=== PATIENT | female | born 1995 | race Caucasian/White ===

== ENCOUNTER 2018-05-20 07:48 | Emergency (ER) | payer OTHER, SELFPAY ==
[2018-05-20 08:00] VITALS: BP 136/87; PULSE 103; RESP 20; TEMP 36.2; O2SAT 100; BMI 22.0
--- NOTE | 2018-05-20 08:05 | ED.FEMALEGU ---
HPI - Female Genitourinary General Chief complaint: Urogenital-Female Stated complaint: 5 weeks ,bleeding Time Seen by Provider: 05/20/18 07:51 Source: patient and family Mode of arrival: ambulatory Limitations: no limitations History of Present Illness HPI Narrative: 23-year-old female, nonsmoker at 5 weeks presents with some pelvic cramping and bleeding which started last night and progressed to the passage of some clots over the course of this morning. She has bled through 2 pads in the past 8 hr. She is not dizzy nor weak or lightheaded. She denies any fever or chills. She has no dysuria, frequency or urgency. MD Complaint: vaginal bleeding Onset (ago): hour(s) Female Urogenital Radiation: Non-Radiating Quality: Aching and Cramping Duration: intermittent Relieving factors: none Exacerbating factors: none Vaginal discharge: blood and blood clots Patient : Yes Related Data : 1 Para: 0 Review of Systems Review of Systems All systems reviewed & are unremarkable except as noted in HPI and below Constitutional Denies chills, Denies fever(s), Denies lethargy and Denies weakness Eyes Denies change in vision, Denies eye discharge, Denies irritation and Denies loss of vision ENT Ears, Nose, Mouth, and Throat: Denies change in voice, Denies neck pain and Denies sore throat Cardiovascular Denies chest pain, Denies irregular heart rhythm, Denies lightheadedness, Denies palpitations, Denies dyspnea, Denies dyspnea on exertion and Denies orthopnea Respiratory Denies cough, Denies dyspnea, Denies dyspnea on exertion and Denies wheezing Gastrointestinal Gastrointestinal: Denies abdominal pain, Denies change in bowel habits, Denies diarrhea, Denies nausea and Denies vomiting Genitourinary Reports abnormal vaginal bleeding, Denies hematuria, Reports pelvic pain, Denies flank pain, Denies urinary incontinence and Denies urinary urgency Musculoskeletal Denies neck pain Integumentary/Breasts Denies pruritus, Denies erythema, Denies rash and Denies wounds Neurologic Denies confusion, Denies loss of vision and Denies weakness Psychiatric Denies anxiety, Denies confusion, Denies depression, Denies homicidal ideation and Denies suicidal ideation Endocrine Denies palpitations Hematologic/Lymphatic Denies easy bruising Allergic/Immunologic Denies wheezing [facility] Social History Smoking Status: Never smoker Exam Narrative Exam Narrative: GENERAL: 23-year-old female, tearful, in mild distress HEAD: Atraumatic. Normocephalic. No temporal or scalp tenderness. EYES: Pupils equal round and reactive. Extraocular motions intact. No scleral icterus. No injection or drainage. ENT: Nose without bleeding, purulent drainage or septal hematoma. Throat without erythema, tonsillar hypertrophy or exudate. Uvula midline. Airway patent. NECK: Trachea midline. No JVD or lymphadenopathy. Supple, nontender, no meningeal signs. CARDIOVASCULAR: Regular rate and rhythm without murmurs, gallops, or rubs. RESPIRATORY: Clear to auscultation. Breath sounds equal bilaterally. No wheezes, rales, or rhonchi. GASTROINTESTINAL: Abdomen soft, non-tender, nondistended. No hepato-splenomegaly, or palpable masses. No guarding. EXTREMITIES: No clubbing, cyanosis, or edema. No joint tenderness, effusion, or edema noted. BACK: Nontender without deformity or crepitance. No flank tenderness. NEURO: AOx3. SKIN: No rash or erythema. Initial Vital Signs Initial Vital Signs: Vital Signs Temperature 97.2 F L 05/20/18 08:00 Pulse Rate 103 H 05/20/18 08:00 Respiratory Rate 20 05/20/18 08:00 Blood Pressure 136/87 05/20/18 08:00 Pulse Oximetry 100 05/20/18 08:00 Course Orders Ordered: ED Orders 05/20/18 09:39 Urine Microscopic Stat Vital Signs - 8 hr 05/20/18 08:00 Temperature 97.2 F L Pulse Rate 103 H Respiratory Rate 20 Blood Pressure 136/87 Pulse Oximetry 100 MDM - Female Genitourinary Lab Data Result diagrams: 05/20/18 08:13 Lab Results 05/20/18 05/20/18 05/20/18 Range/Units 08:13 08:13 08:13 WBC 6.8 (4.5-11.0) X10^3/uL RBC 4.75 (4.0-5.2) X10^6/uL Hgb 14.7 (12.0-16.0) g/dL Hct 44.0 (36-46) % MCV 92.8 (80-100) fL MCH 31.1 (26-34) PG MCHC 33.5 (30-36) % RDW 12.7 (11.6-14.8) % Plt Count 255 (150-400) X10^3/uL Neut % (Auto) 70.9 (50-75) % Lymph % (Auto) 22.8 L (25-40) % [place] % (Auto) 5.3 (3-14) % Eos % (Auto) 0.7 L (2-4) % Baso % (Auto) 0.3 (0-2) % Neut # (Auto) 4800 (1213-6221) /uL HCG, Quant 41.35 mIU/mL Urine RBC (0-5/HPF) Urine WBC (0-5/HPF) Ur Squamous Epith Cells Urine Bacteria (None) Urine Mucus (Negative) Ur Culture Indicated? Micro UA Comment Blood Type B Positive 05/20/18 Range/Units 09:21 WBC (4.5-11.0) X10^3/uL RBC (4.0-5.2) X10^6/uL Hgb (12.0-16.0) g/dL Hct (36-46) % MCV (80-100) fL MCH (26-34) PG MCHC (30-36) % RDW (11.6-14.8) % Plt Count (150-400) X10^3/uL Neut % (Auto) (50-75) % Lymph % (Auto) (25-40) % [place] % (Auto) (3-14) % Eos % (Auto) (2-4) % Baso % (Auto) (0-2) % Neut # (Auto) (6221-3161) /uL HCG, Quant mIU/mL Urine RBC 1-5/hpf (0-5/HPF) Urine WBC 0-1/hpf (0-5/HPF) Ur Squamous Epith Cells 0-1 /hpf Urine Bacteria Moderate (10-30) H (None) Urine Mucus 3+ H (Negative) Ur Culture Indicated? Specimen cultured Micro UA Comment Not Reportable Blood Type Point of Care Testing Test Results Negative Urine Dip Bedside Urine Glucose Negative Bedside Urine Bilirubin + 1 Bedside Urine Ketone +/- 5 Urine Specific [place] 1.025 Bedside Urine Occult Blood +++ Bedside Urine pH 6.0 Bedside Urine Protein +/- 15 Bedside Urine Urobilinogen - Negative Bedside Urine Nitrite - Negative Bedside Urine Leukocytes - Negative Esterase Discharge Plan Departure Patient Disposition: Home Clinical Impression: Abnormal vaginal bleeding Discharge Date/Time: 05/20/18 10:02 Interventions: ED Discharge Assessment Last Done: 05/20/18 10:02 Instructions: DI for Vaginal Bleeding During Activity Restrictions/Additional Instructions: *You have been diagnosed with [ vaginal bleeding in 1st trimester. Our urine test was negative and the blood test was very low. ] *What to do: *Follow up with your primary care provider (Emelyn) in 2-3 days, call for an appointment. Let them know you were seen in the Emergency Department and that we ask that you be seen in follow up. She will likely repeat some blood tests *Return to ER if you should have any new, worsening or concerning symptoms, such as [ increased bleeding, pain, fever over 101F or other bothersome symptoms] Referrals: Jazmin Dunaway DO [Primary Care Provider] -
--- NOTE | 2018-05-20 08:16 | DI.US.S_ITS ---
PROCEDURE: US PELVIC COMPLETE INDICATIONS: 5 WEEKS ; BLEEDING, CRAMPING TECHNIQUE: Real-time scanning was performed of the pelvic organs, with image documentation. Additional endovaginal scanning was necessary due to incomplete visualization of the adnexal and endometrial structures by transabdominal scanning. COMPARISON: None. FINDINGS: Transabdominal scanning: Limited scanning through the kidneys shows no hydronephrosis. No pathologic free abdominal or pelvic fluid. Endovaginal scanning: Uterus: Uterus is normal in size at 7.5 x 3.7 x 4.7 cm. The endometrium measures 7.1 mm in combined thickness. No intrauterine gestational sac is seen. Ovaries: Right ovary measures 3.3 x 1.6 x 1.7 cm in size. Left ovary measures 5.2 x 3.4 x 4.3 cm in size. 4 x 2.8 x 4 cm simple cyst is noted in left ovary. No gross solid appearing ovarian lesion. IMPRESSION: 1. No evidence of intrauterine gestation. No endometrial mass or fluid. Finding may represent spontaneous . Followup with beta-hCG level is recommended. 2. Simple cyst in left ovary. No gross ectopic gestational sac. No gross solid or primary lesion. Dictated by: Juvenal Oleary M.D. on 05/20/2018 at 9:45 Approved by: Juvenal Oleary M.D. on 05/20/2018 at 9:48
[2018-05-20 08:33] LABS: Add Manual Diff / Slide Review NO; Basophils Percent Auto 0.3 % (0-2); Eosinophils Percent Auto 0.7 % (2-4); Hemoglobin 14.7 g/dL (12.0-16.0); Lymphocytes Percent Auto 22.8 % (25-40); Mean Corpuscular HGB Conc 33.5 % (30-36); Mean Corpuscular Hemoglobin 31.1 PG (26-34); Mean Corpuscular Volume 92.8 fL (80-100); Monocytes Percent Auto 5.3 % (3-14); Neutrophils Absolute Auto 4800 /uL (3000-5900); Neutrophils Percent Auto 70.9 % (50-75); Platelet Count 255 X10^3/uL (150-400); Red Blood Cell Count 4.75 X10^6/uL (4.0-5.2); Red Cell Distribution Width 12.7 % (11.6-14.8); White Blood Cell Count 6.8 X10^3/uL (4.5-11.0)
--- NOTE | 2018-05-20 08:59 | ED_ITS ---
HPI - Female Genitourinary General Chief complaint: Urogenital-Female Stated complaint: 5 weeks ,bleeding Time Seen by Provider: 05/20/18 07:51 Source: patient and family Mode of arrival: ambulatory Limitations: no limitations History of Present Illness HPI Narrative: 23-year-old female, nonsmoker at 5 weeks presents with some pelvic cramping and bleeding which started last night and progressed to the passage of some clots over the course of this morning. She has bled through 2 pads in the past 8 hr. She is not dizzy nor weak or lightheaded. She denies any fever or chills. She has no dysuria, frequency or urgency. MD Complaint: vaginal bleeding Onset (ago): hour(s) Female Urogenital Radiation: Non-Radiating Quality: Aching and Cramping Duration: intermittent Relieving factors: none Exacerbating factors: none Vaginal discharge: blood and blood clots Patient : Yes Related Data : 1 Para: 0 Review of Systems Review of Systems All systems reviewed & are unremarkable except as noted in HPI and below Constitutional Denies chills, Denies fever(s), Denies lethargy and Denies weakness Eyes Denies change in vision, Denies eye discharge, Denies irritation and Denies loss of vision ENT Ears, Nose, Mouth, and Throat: Denies change in voice, Denies neck pain and Denies sore throat Cardiovascular Denies chest pain, Denies irregular heart rhythm, Denies lightheadedness, Denies palpitations, Denies dyspnea, Denies dyspnea on exertion and Denies orthopnea Respiratory Denies cough, Denies dyspnea, Denies dyspnea on exertion and Denies wheezing Gastrointestinal Gastrointestinal: Denies abdominal pain, Denies change in bowel habits, Denies diarrhea, Denies nausea and Denies vomiting Genitourinary Reports abnormal vaginal bleeding, Denies hematuria, Reports pelvic pain, Denies flank pain, Denies urinary incontinence and Denies urinary urgency Musculoskeletal Denies neck pain Integumentary/Breasts Denies pruritus, Denies erythema, Denies rash and Denies wounds Neurologic Denies confusion, Denies loss of vision and Denies weakness Psychiatric Denies anxiety, Denies confusion, Denies depression, Denies homicidal ideation and Denies suicidal ideation Endocrine Denies palpitations Hematologic/Lymphatic Denies easy bruising Allergic/Immunologic Denies wheezing [facility] Social History Smoking Status: Never smoker Exam Narrative Exam Narrative: GENERAL: 23-year-old female, tearful, in mild distress HEAD: Atraumatic. Normocephalic. No temporal or scalp tenderness. EYES: Pupils equal round and reactive. Extraocular motions intact. No scleral icterus. No injection or drainage. ENT: Nose without bleeding, purulent drainage or septal hematoma. Throat without erythema, tonsillar hypertrophy or exudate. Uvula midline. Airway patent. NECK: Trachea midline. No JVD or lymphadenopathy. Supple, nontender, no meningeal signs. CARDIOVASCULAR: Regular rate and rhythm without murmurs, gallops, or rubs. RESPIRATORY: Clear to auscultation. Breath sounds equal bilaterally. No wheezes , rales, or rhonchi. GASTROINTESTINAL: Abdomen soft, non-tender, nondistended. No hepato-splenomegaly , or palpable masses. No guarding. EXTREMITIES: No clubbing, cyanosis, or edema. No joint tenderness, effusion, or edema noted. BACK: Nontender without deformity or crepitance. No flank tenderness. NEURO: AOx3. SKIN: No rash or erythema. Initial Vital Signs Initial Vital Signs: Vital Signs Temperature 97.2 F L 05/20/18 08:00 Pulse Rate 103 H 05/20/18 08:00 Respiratory Rate 20 05/20/18 08:00 Blood Pressure 136/87 05/20/18 08:00 Pulse Oximetry 100 05/20/18 08:00 Course Orders Ordered: ED Orders 05/20/18 09:39 Urine Microscopic Stat Vital Signs - 8 hr 05/20/18 08:00 Temperature 97.2 F L Pulse Rate 103 H Respiratory Rate 20 Blood Pressure 136/87 Pulse Oximetry 100 MDM - Female Genitourinary Lab Data Result diagrams: 05/20/18 08:13 Lab Results 05/20/18 05/20/18 05/20/18 Range/Units 08:13 08:13 08:13 WBC 6.8 (4.5-11.0) X10^3/uL RBC 4.75 (4.0-5.2) X10^6/uL Hgb 14.7 (12.0-16.0) g/dL Hct 44.0 (36-46) % MCV 92.8 (80-100) fL MCH 31.1 (26-34) PG MCHC 33.5 (30-36) % RDW 12.7 (11.6-14.8) % Plt Count 255 (150-400) X10^3/uL Neut % (Auto) 70.9 (50-75) % Lymph % (Auto) 22.8 L (25-40) % [place] % (Auto) 5.3 (3-14) % Eos % (Auto) 0.7 L (2-4) % Baso % (Auto) 0.3 (0-2) % Neut # (Auto) 4800 (1446-9021) /uL HCG, Quant 41.35 mIU/mL Urine RBC (0-5/HPF) Urine WBC (0-5/HPF) Ur Squamous Epith Cells Urine Bacteria (None) Urine Mucus (Negative) Ur Culture Indicated? Micro UA Comment Blood Type B Positive 05/20/18 Range/Units 09:21 WBC (4.5-11.0) X10^3/uL RBC (4.0-5.2) X10^6/uL Hgb (12.0-16.0) g/dL Hct (36-46) % MCV (80-100) fL MCH (26-34) PG MCHC (30-36) % RDW (11.6-14.8) % Plt Count (150-400) X10^3/uL Neut % (Auto) (50-75) % Lymph % (Auto) (25-40) % [place] % (Auto) (3-14) % Eos % (Auto) (2-4) % Baso % (Auto) (0-2) % Neut # (Auto) (9912-6509) /uL HCG, Quant mIU/mL Urine RBC 1-5/hpf (0-5/HPF) Urine WBC 0-1/hpf (0-5/HPF) Ur Squamous Epith Cells 0-1 /hpf Urine Bacteria Moderate (10-30) H (None) Urine Mucus 3+ H (Negative) Ur Culture Indicated? Specimen cultured Micro UA Comment Not Reportable Blood Type Point of Care Testing Test Results Negative Urine Dip Bedside Urine Glucose Negative Bedside Urine Bilirubin + 1 Bedside Urine Ketone +/- 5 Urine Specific [place] 1.025 Bedside Urine Occult Blood +++ Bedside Urine pH 6.0 Bedside Urine Protein +/- 15 Bedside Urine Urobilinogen - Negative Bedside Urine Nitrite - Negative Bedside Urine Leukocytes - Negative Esterase Discharge Plan Departure Patient Disposition: Home Clinical Impression: Abnormal vaginal bleeding Discharge Date/Time: 05/20/18 10:02 Interventions: ED Discharge Assessment Last Done: 05/20/18 10:02 Instructions: DI for Vaginal Bleeding During Activity Restrictions/Additional Instructions: *You have been diagnosed with [ vaginal bleeding in 1st trimester. Our urine test was negative and the blood test was very low. ] *What to do: *Follow up with your primary care provider (Emelyn) in 2-3 days, call for an appointment. Let them know you were seen in the Emergency Department and that we ask that you be seen in follow up. She will likely repeat some blood tests *Return to ER if you should have any new, worsening or concerning symptoms , such as [ increased bleeding, pain, fever over 101F or other bothersome symptoms] Referrals: Jazmin Dunaway DO [Primary Care Provider] -
[2018-05-20 09:01] LABS: HCG Quantitative /Beta subunit 41.35 mIU/mL
[2018-05-20 09:42] LABS: Bacteria Urine Moderate (10-30); Culture Indicated Urine Specimen Cultured; Mucus Urine 3+ (Negative); RBC Urine 1-5/HPF (0-5/HPF); Squamous Epithelial Cell Urine 0-1 /HPF; WBC Urine 0-1/HPF (0-5/HPF)
[2018-05-20 10:00] VITALS: BP 108/71; PULSE 85; RESP 18; O2SAT 99
== END 2018-05-20 10:02 | disposition home or self-care (01) ==
PROVIDERS: Emergency Provider Emergency Medicine; PCP Family Medicine
DX: O20.9 Hemorrhage in early pregnancy, unspecified (principal); Z3A.01 Less than 8 weeks gestation of pregnancy
CPT/HCPCS: 36415; 76830; 76856; 81003; 81015; 81025; 84702; 85025; 86900; 86901; 87086; 99283; 99284

== ENCOUNTER → 2018-06-01 10:44 | Outpatient (CLI) | payer OTHER, SELFPAY ==
[2018-06-01 12:07] LABS: Add Manual Diff / Slide Review NO; Basophils Percent Auto 0.4 % (0-2); Eosinophils Percent Auto 0.7 % (2-4); Hematocrit 42.3 % (36-46); Hemoglobin 14.3 g/dL (12.0-16.0); Lymphocytes Percent Auto 26.2 % (25-40); Mean Corpuscular HGB Conc 33.9 % (30-36); Mean Corpuscular Hemoglobin 31.1 PG (26-34); Mean Corpuscular Volume 91.8 fL (80-100); Monocytes Percent Auto 5.1 % (3-14); Neutrophils Absolute Auto 5000 /uL (1500-7000); Neutrophils Percent Auto 67.6 % (50-75); Platelet Count 255 X10^3/uL (150-400); Red Blood Cell Count 4.61 X10^6/uL (4.0-5.2); Red Cell Distribution Width 12.5 % (11.6-14.8); White Blood Cell Count 7.3 X10^3/uL (4.5-11.0)
[2018-06-01 12:43] LABS: Appearance Urine UA CLEAR; Bilirubin Urine UA NEGATIVE (NEGATIVE); Color Urine UA YELLOW; Glucose Urine UA NEGATIVE (Normal); Ketones Urine UA NEGATIVE (NEGATIVE); Leukocyte Esterase Urine UA NEGATIVE (NEGATIVE); Nitrite Urine UA NEGATIVE (Negative); Occult Blood Urine UA NEGATIVE (Negative); Protein Urine UA NEGATIVE (Negative); Urobilinogen Urine UA 0.2 E.U./dL (0.2)
[2018-06-01 17:09] LABS: Hepatitis B Surface Antigen NEGATIVE s/c (NEGATIVE); Rubella Antibody IgG 46.2 IU/mL (>15)
[2018-06-01 17:18] LABS: HIV 1 and 2 Antibody NEGATIVE (NEGATIVE); Hep C Virus Ab w/Reflex Quant NEGATIVE s/c (NEGATIVE)
[2018-06-02 12:39] LABS: HSV 2 IGG AB < 0.90 index (< 0.90); HSV1IGG < 0.90 index (< 0.90)
[2018-06-02 18:40] LABS: RPR Screen Nonreactive (Nonreactive)
[2018-06-03 13:45] LABS: HCG Quantitative /Beta subunit < 2.39 mIU/mL
== END ==
PROVIDERS: PCP Family Medicine; Visit Provider Family Medicine
DX: Z34.91 Encounter for supervision of normal pregnancy, unspecified, first trimester (principal); O03.9 Complete or unspecified spontaneous abortion without complication
CPT/HCPCS: 36415; 80055; 81003; 84702; 86695; 86696; 86703; 86787; 86803; 86850; 86900; 86901; 87086

== ENCOUNTER → 2018-09-01 07:32 | Outpatient (CLI) | payer OTHER, SELFPAY ==
--- NOTE | 2018-09-01 07:34 | DI.US.S_ITS ---
PROCEDURE: US OB <= 14 WEEKS FETUS INDICATIONS: Initial/Dating US OUTSIDE/PRIOR DATING DATA: Last menstrual period (LMP): 07/14/18. LMP-based estimated date of delivery (ABHINAV): 04/20/19. First dating scan (date and location): This study, 09/01/18. Estimated date of delivery (ABHINAV) from first dating scan: 04/17/19, plus or -5 days. TECHNIQUE: Real-time scanning was performed of the fetus and maternal pelvic organs, with image documentation. Endovaginal scanning was also performed to better visualize the fetus and maternal ovaries. COMPARISON: None. FINDINGS: Embryo: [place]-rump length 1.3 cm with estimated gestational age 7 weeks 3 days and heart rate 150 beats per minute. Measurement variability in dating: +/- 4 weeks by LMP, +/- 7 days by mean sac diameter (use before 6 weeks gestation if crown-rump length not able to be measured), +/- 5 days by crown-rump length (up to 8 weeks 6 days gestation), +/- 7 days by crown-rump length (up to 13 weeks 6 days gestation). Maternal organs: Ovaries normal considering gestational status. Limited images through the kidneys demonstrate no hydronephrosis. IMPRESSION: Single living intrauterine gestation with current estimated gestational age of 7 weeks 3 days, plus or -5 days. Followup anatomic survey at approximately 21 weeks gestation is recommended. Dictated by: Dean Sheth M.D. on 09/01/2018 at 10:05 Approved by: Dean Sheth M.D. on 09/01/2018 at 10:07
== END ==
PROVIDERS: PCP Family Medicine; Visit Provider Family Medicine
DX: Z34.91 Encounter for supervision of normal pregnancy, unspecified, first trimester (principal); Z3A.01 Less than 8 weeks gestation of pregnancy
CPT/HCPCS: 76801; 76817

== ENCOUNTER → 2018-11-30 09:31 | Outpatient (CLI) | payer OTHER, SELFPAY ==
--- NOTE | 2018-11-30 09:32 | DI.US.S_ITS ---
PROCEDURE: US OB >= 14 WEEKS FETUS INDICATIONS: ANATOMY OUTSIDE/PRIOR DATING DATA: Last menstrual period (LMP): 07/14/18. LMP-based estimated date of delivery (ABHINAV): 04/20/19. First dating scan (date and location): This study, 09/01/18. Estimated date of delivery (ABHINAV) from first dating scan: 04/17/19, plus or -5 days. TECHNIQUE: Real-time scanning was performed of the fetus, with image documentation and biometric measurements. Endovaginal scanning: No COMPARISON: [facility], , OB <= 14 WEEKS FETUS, 09/01/2018, 7:58. FINDINGS: General: A single living intrauterine gestation is present. Presentation: Transverse. Placenta: Placental position is fundal, without previa. Amniotic fluid index: 12.6 cm, normal range is 5-24 cm. heart rate: 145 beats per minute. Maternal cervical canal: 3.6 cm long. Normal lower limit is 2.5 cm. biometrics: Biparietal diameter: 21 weeks 4 days Head circumference: 21 weeks 2 days Abdominal circumference: 21 weeks 6 days Femur length: 20 weeks 5 days Estimated gestational age from initial scan: 20 weeks 2 days Composite gestational age from present scan: 21 weeks 3 days Estimated weight and percentile: 417 g; 94th percentile Measurement variability for biometric dating: +/- 7 days from 14 weeks to 15 weeks 6 days gestation, +/- 10 days from 16 weeks to 21 weeks 6 days gestation, +/- 2 weeks from 22 weeks to 27 weeks 6 days gestation, +/- 3 weeks for 28 weeks gestation or later. weight reference: 4500 g or EFW >90/95% is considered macrosomia or large for gestational age. EFW <10% is small for gestational age. EFW 5% or less is considered intra-uterine growth restriction. Anatomic survey: Neuro: Ventricles are non-dilated at less than 10 mm. Cisterna magna is normal at 3-11 mm. Cerebellum is normal in size and morphology. Nuchal skin fold: Normal at less than 6 mm between 14-21 weeks gestational age. Face: Nose and lips, facial profile are normal. Spine: No evidence for spina bifida. Heart: 4-chambered heart is present, with normal ventricular outflow tracts. Diaphragm: Diaphragm is intact. Stomach: Left-sided stomach is present. Kidneys: No hydronephrosis. Normal is less than 5 mm in 2nd trimester, less than 7 mm in 3rd trimester. Cord: 3-vessel cord has orthotopic insertion. Bladder: Normal in size. Extremities: All 4 extremities identified. IMPRESSION: Normal interval growth and normal anatomic survey. Dictated by: Willie REID Interpreted: Pushpa Fernando MD on 11/30/2018 at 10:47 Approved by: Pushpa Fernando M.D. on 11/30/2018 at 14:10
== END ==
PROVIDERS: PCP Family Medicine; Visit Provider Family Medicine
DX: Z36.89 Encounter for other specified antenatal screening (principal); Z3A.21 21 weeks gestation of pregnancy
CPT/HCPCS: 76811

== ENCOUNTER → 2019-01-20 08:30 | Outpatient (CLI) | payer OTHER, SELFPAY ==
[2019-01-20 11:29] LABS: Hematocrit 31.1 % (36-46); Hemoglobin 11.1 g/dL (12.0-16.0)
[2019-01-20 11:52] LABS: GTT (PREG) 1 Hour PP 50gm Dose 106 mg/dL (76-139)
== END ==
PROVIDERS: PCP Family Medicine; Visit Provider Family Medicine
DX: Z34.82 Encounter for supervision of other normal pregnancy, second trimester (principal); Z3A.26 26 weeks gestation of pregnancy
CPT/HCPCS: 36415; 82950; 85014; 85018

== ENCOUNTER → 2019-03-23 11:00 | Outpatient (CLI) | payer OTHER, SELFPAY ==
[2019-03-24 09:39] LABS: Strep Grp B PCR NEG for Grp B Strep
== END ==
PROVIDERS: PCP Family Medicine; Referring Provider Family Medicine; Visit Provider Family Medicine
DX: Z34.90 Encounter for supervision of normal pregnancy, unspecified, unspecified trimester (principal); Z3A.36 36 weeks gestation of pregnancy
CPT/HCPCS: 87653

== ENCOUNTER 2019-04-05 03:10 | Observation (INO) | payer OTHER, SELFPAY ==
--- NOTE | 2019-04-05 07:30 | PM.OBTRLD ---
Visit Information Visit Information Date of evaluation: 04/05/19 Primary OB Provider: Jazmin Dunaway On-call OB Provider: Grace Herrmann Reason for Evaluation: Yes rupture of membranes Vital Signs Vital Signs: Blood pressure 118/64, pulse 111, temperature 98.4? 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 Smoking Status: Never smoker alcohol intake: current (rare) substance use type: does not use Evaluation Evaluation Baseline heart rate: 140 Variability: Moderate (11-25) monitor accelerations: Present monitor decelerations: Absent Contraction Frequency (minutes): 8 Uterine Contraction Intensity: Mild Category of Tracing: I Cervical dilation (cm): 1 Cervical effacement (%): 60 station: -2 Non-invasive Membranes Rupture Test: positive Diagnosis, Plan/Disposition Final Diagnosis (1) PROM (premature rupture of membranes): Current Visit: No Status: Acute (2) 37 weeks gestation of : Current Visit: No Status: Acute Plan/Disposition Plan: Patient not in active labor with PROM. Advised patient to stay for induction of labor but patient declined. She wishes to go home for few more hours to see if she goes into active labor. OB Disposition: home
== END 2019-04-05 04:35 | disposition home or self-care (01) ==
LOC: LABOR 03:14
PROVIDERS: Admitting Provider Specialist; PCP Family Medicine; Visit Provider Specialist
DX: O42.90 Premature rupture of membranes, unspecified as to length of time between rupture and onset of labor, unspecified weeks of gestation (principal); Z3A.37 37 weeks gestation of pregnancy
CPT/HCPCS: 59025; 84112; G0378; G0379

== ENCOUNTER 2019-04-05 09:14 | Inpatient (IN) | payer OTHER, SELFPAY ==
[2019-04-05 11:01] VITALS: BP 118/73
--- NOTE | 2019-04-05 11:45 | PM.OBHP.1 ---
OB HPI Date/Time Date of admission: 04/05/19 Date Patient Seen: 04/05/19 Time Patient Seen: 12:30 History of Present Condition Chief complaint: : 2 Para: 0 Estimated Date of Delivery: 04/20/19 Estimated Gestational Age (weeks): 37w6d Narrative: Adelina Payne is a 23 year old at 37 weeks and 6 days gestation which spontaneous rupture of membranes last night at 9:15 p.m.. Patient came into triage at approximately 3 this morning to confirm rupture of membranes. Admission was recommended however she declined. She returned this morning and again declined intervention in favor of a walk. Patient has now walked and is feeling contractions more in addition to ongoing leaking of clear fluid. She reports good movement. has been uncomplicated. Her is currently deployed but on his way back now. History of Present care: good care, initiated at week # (8), number of visits (11) and pounds weight gain (25) Dating criteria: LMP confirmed by 1st trimester US Ultrasounds: normal 1st trimester US and normal mid trimester US Obstetrical complications: none Medical complications: none Narrative: Positive family history of Ayazi syndrome and Jimbo syndrome on side of the family. Patient was referred to maternal medicine, first and second trimester screening normal. Preadmission Labs Blood type: B (+) positive -: Antibody screen: negative, Cystic fibrosis screen: negative, GBS status: negative, HBsAG: negative, HIV: negative, HSV 1: negative, HSV 2: negative and RPR/VDLR: negative -: Rubella: immune and Varicella: immune HCT: 42.3 HCAB: negative Integrated screen: Negative Quad screen: Normal Urine: Negative 1 hr GTT: 102 Prior (ies) History: 06/01/18 SAB 6 weeks Evaluation Evaluation Baseline heart rate: 140 Variability: Average (6-10) monitor accelerations: Present monitor decelerations: Absent Contraction Frequency (minutes): 6 Uterine Contraction Intensity: Moderate Category of Tracing: I Cervical dilation (cm): 2 Cervical effacement (%): 75 station: -1 Non-invasive Membranes Rupture Test: positive [facility] Medical History Anxiety (Chronic ~2011) Eczema (Chronic ~2015) Surgical History Hx of LASIK (Resolved) [place] teeth extracted (Resolved) Family History Mother Hypertension Mental health problem Father Hypertension Heart disease Sister Mental health problem Grandmother Dementia Grandmother Cancer Social History marital status: education level: college (BS in biology) 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 Smoking Status: Never smoker alcohol intake: current (rare) substance use type: does not use Meds Home Medications and Allergies Home Medications Medication Instructions Recorded Confirmed Type prenat.vits,kelsea,afm-sdsj-naenv 1 tab PO DAILY 09/11/18 09/11/18 History Allergies Allergy/AdvReac Type Severity Reaction Status Date / Time amoxicillin [From Augmentin] Allergy Mild rash Verified 05/23/18 12:03 clavulanic acid Allergy Mild rash Verified 05/23/18 12:03 [From Augmentin] latex Allergy Mild rash Verified 05/23/18 12:04 Sulfa (Sulfonamide Allergy Mild rash Verified 05/23/18 12:04 Antibiotics) Review of Systems Constitutional Constitutional: Denies fever(s) and Denies headache(s) ENT Ears, Nose, Mouth, and Throat: No headache(s) Cardiovascular Cardiovascular: Denies chest pain and Denies shortness of breath Respiratory Respiratory: Denies cough and Denies dyspnea Gastrointestinal Gastrointestinal: Denies change in bowel habits, Denies nausea and Denies vomiting Neurologic Neurologic: Denies headache(s) Exam Vital Signs (past 8 hours): - 04/05/19 11:01 Blood Pressure 118/73 temperature 36.7? blood pressure 113/67 pulse 102 Const General: healthy appearing and comfortable [facility] Head: normal to inspection Ears: hearing grossly normal bilaterally Nose: external nose normal Face and sinus: normal facial exam Mouth: oral mucosae normal Eyes General: appearance normal, both eyes and all related structures Neck Neck: normal visual inspection Resp Effort & Inspection: normal respiratory effort Auscultation: clear to auscultation bilaterally Cardio Rate: regular rate Rhythm: regular rhythm Heart Sounds: no murmurs GI Other: Gravid External Female Exam: external appearance normal Manual OB Exam: dilated 2, effaced 75% and station -1 Presentation: vertex Estimated Weight (lbs): 7 Amniotic Fluid: clear Back/Spine/Pelvis Back: normal to inspection Skin General: no rashes or lesions noted Extrem General: normal to inspection and no pedal edema Assessment and Plan Assessment and Plan Assessment and Plan narrative: 23-year-old at 37 weeks and 6 days gestation with pre labor rupture of membranes at 9:15 p.m. last night with clear fluid. She has continued to leak clear fluid. GBS negative. Patient afebrile and heart tones category 1. Discussed options with patient of expected management verses augmentation of labor. Explained that the risks of infection go up after rupture of membranes, particularly after 24 hours of rupture. She is now 15 hours since rupture and agrees with augmentation of labor. Plan - Pitocin per protocol - Patient desires natural childbirth and has a [employer] as well as sister and friend for support
[2019-04-05] MEDS: LACTATED RINGERS 1,000 ML 100 ML IV (12:48)
[2019-04-05 13:15] LABS: Add Manual Diff / Slide Review NO; Basophils Absolute Auto 0 /uL (0-100); Basophils Percent Auto 0.3 % (0-2); Eosinophils Absolute Auto 100 /uL (0-450); Eosinophils Percent Auto 0.4 % (2-4); Hematocrit 32.1 % (36-46); Lymphocytes Absolute Auto 1800 /uL (1100-4500); Lymphocytes Percent Auto 11.2 % (25-40); Mean Corpuscular HGB Conc 34.3 % (30-36); Mean Corpuscular Hemoglobin 30.4 PG (26-34); Mean Corpuscular Volume 88.8 fL (80-100); Monocytes Absolute Auto 800 /uL (0-900); Monocytes Percent Auto 5.2 % (3-14); Neutrophils Absolute Auto 13600 /uL (1500-7000); Neutrophils Percent Auto 82.9 % (50-75); Platelet Count 330 X10^3/uL (150-400); Red Blood Cell Count 3.61 X10^6/uL (4.0-5.2); Red Cell Distribution Width 13.4 % (11.6-14.8); White Blood Cell Count 16.4 X10^3/uL (4.5-11.0)
[2019-04-05] MEDS: OXYTOCIN PREMIX 30 UNIT/500 ML PLAST..BAG IV (13:25)
--- NOTE | 2019-04-05 17:31 | PM.OBPNLAB ---
Date/Time Date Patient Seen: 04/05/19 Time Patient Seen: 16:45 Pain Control Pain control: tolerating well Comments: Coping with contractions with support of friend and surgical resident, rates 6/10. Pelvic Exam Dilation (cm): 3 Effacement (%): 80 station: -1 Amniotic membrane status: Ruptured Contractions Monitor mode: External Pitocin rate (mU/min): 5 Contraction frequency (min): 4 Contraction pattern: Regular Contraction intensity: Moderate Status status: Category l Heart Rate Baseline: 130 Monitor Accelerations: Present Monitor Decelerations: Absent Monitor Variability: Moderate Assessment and Plan Plan: continuous present management Comments: Modest cervical change on pitocin, likely entering active labor.
[2019-04-06] MEDS: LIDOCAINE 1% 20 ML (02:15)
[2019-04-06] MEDS: miSOPROStol 200 MCG TABLET 800 MCG PR (02:30)
--- NOTE | 2019-04-06 02:34 | P.PCNOB_ITS ---
Events: Labor Augmentation, Premature Rupture of Membrane and Prolonged Rupture of Membrane Labor & Delivery Delivery date: 04/06/19 Delivery augmentation: pitocin Delivery monitor: external FHT Route of delivery: L&D Laceration Description: Perineal - 1st Degree Delivery repair: vicryl Estimated blood loss (mL): 500 Anesthesia type: Epidural Narrative: Patient is a 23-year-old at 38 weeks who gave on 04/06/19 at 2:02 AM. ABHINAV: 04/20/19 Hospital problems: 38 weeks of Epidural analgesia STAGE I: Labor Spontaneous rupture of membranes occurred at home on 04/04/19 at approximately 9:15 p.m. with clear fluid. Patient was admitted to the center and received Pitocin per protocol starting on 04/05/19 at 12:30 p.m.. She requests well on minimal Pitocin and received an epidural with adequate pain control. She was complete at 11:20 p.m.. heart tones were category 1 and 2 throughout stage I. STAGE II: Delivery Spontaneous vaginal delivery occurred at 2:02 a.m. on 04/06/19. Presentation was vertex and JASPREET. There was a nuchal cord x1 which was reduced. Infant was immediately placed on mother's abdomen. Cord was clamped and cut after 1 minute delay. Apgars were 8 and 9 at 1 and 5 minutes. The second stage of labor lasted 2 hours and 42 minutes. No resuscitation of the required beyond drying and stimulating on mother. STAGE III: Placenta/Cord Placenta delivered spontaneously at 2:07 a.m. with a three-vessel cord and appeared intact. The third stage of labor lasted 5 minutes. A first degree perineal laceration was repaired in the usual fashion with 4 0 Vicryl. Complications: Continued trickling despite pitocin. Misoprostol given per rectum with resolution of bleeding. Uterus firm. Hemostasis assured. EBL: 500 mL. Needle and sponge counts were correct. The vagina was inspected and no items were left in situ. Patient was doing well with Bill, her and at bedside. Baby 1: gender: Male Presentation: vertex position: Right Occiput Anterior Placenta delivery description: Spontaneous cord vessel description: 3 Vessels score (1 min): 8 score (5 min): 9
[2019-04-06] MEDS: DERMOPLAST SPRAY 20% 60 ML 1 SPRAY TOP (06:18)
[2019-04-06] MEDS: IBUPROFEN 600 MG TABLET PO ×3 (08:20→20:23)
[2019-04-06] MEDS: DOCUSATE 250 MG CAPSULE PO (08:20)
[2019-04-06] MEDS: PRENATAL VIT,CALC/IRON/FOLIC 1 TABLET 1 TAB PO (08:21)
[2019-04-07 03:49] VITALS: BP 118/73; PULSE 77; RESP 18; TEMP 36.6
[2019-04-07] MEDS: IBUPROFEN 600 MG TABLET PO (06:30)
[2019-04-07 06:32] LABS: Hematocrit 31.6 % (36-46); Hemoglobin 10.8 g/dL (12.0-16.0)
--- NOTE | 2019-04-07 09:22 | P.DS_ITS ---
Discharge Providers Provider Date of admission: 04/05/19 09:14 Discharge Date: 04/07/19 Primary care physician: Jazmin Dunaway DO Consults: 04/06/19 03:49 Consult to Community Product Specialist Routine Comment: Discharge provider: Jazmin Dunaway DO Summary Hospital Course Date Patient Seen: 04/07/19 Time Patient Seen: 08:50 Procedures: Spontaneous vaginal delivery Epidural analgesia Hospital Course: Patient is a 23-year-old G2 now P1 after uncomplicated spontaneous vaginal delivery. She was admitted with pre labor rupture of membranes and given Pitocin per protocol for labor augmentation. She received an epidural with adequate pain control and progressed to deliver a vigorous male . Immediately after delivery patient had persistent bleeding with fundal massage so was given misoprostol in addition to Pitocin with resolution of bleeding. Her first degree perineal laceration was repaired in the usual fashion. Bleeding was light and pain well controlled. Breast-feeding going well without issues in the . She was ambulating, eating, voiding without issue. Peripartum Data Delivery Method: Natural Vaginal Laceration description: Perineal - 1st Degree complications: none 1: Gender: Male Disposition of : home Discharge Diagnosis (1) PROM (premature rupture of membranes): Status: Acute (2) 38 weeks gestation of : Status: Acute (3) Spontaneous vaginal delivery: Status: Acute Status at Discharge Cognitive/behavioral status at discharge: at baseline, oriented Overall status at discharge: patient is progressing back to baseline Time Spent with Patient Time attestation: Total time spent providing and/or coordinating discharge services: Time spent: Less than 30 minutes Objective Labs Result Diagrams: 04/07/19 06:20 Labs: Laboratory Results - last 24 hr 04/07/19 06:20 Hgb 10.8 L Hct 31.6 L Exam Vital Signs (past 8 hours): Temperature 99.0? blood pressure 110/69 heart rate 81 respirations 16 Narrative Exam Narrative: General: Awake and alert, no acute distress. HEENT: NCAT, EOMI, moist oral mucosa CV: Regular rate and rhythm, no murmurs, rubs or gallops Lungs: CTAB, no wheezes, rales, or rhonchi Abdomen: Soft, nontender; bowel tones active; uterus firm 1 cm below umbilicus Extremities: Warm, no edema, 2+ pedal pulses bilaterally Discharge Plan Discharge Plan Patient Disposition: Home Discharge comment: Call for fevers, severe pain or bleeding through more than a pad an hour. Discharge Med Rec/Prescriptions Prescriptions: New ibuprofen 600 mg Tablet 600 mg PO Q6HR PRN (Reason: Pain, Mild (1-3)) Qty: 30 RF: 0 docusate sodium 250 mg Capsule 250 mg PO DAILY Qty: 30 RF: 0 Continued prenat.vits,kelsea,dbw-gdid-rjkgi tablet 1 tab PO DAILY RF: 0 Follow up/Referrals: Jazmin Dunaway DO [Primary Care Provider] - 6 Weeks Provider Discharge Instructions Diet: Diet as Tolerated Skin/Wound/Dressing Care Report to your healthcare provider any signs of infection, such as:: chills, fever, night sweats, increased pain, unusual drainage and unusual redness Visit Report/Discharge Packet Visit Report Forms: Patient Portal/API, Stroke Signs & Symptoms Discharge Data Primary Care Provider: Jazmin Dunaway
[2019-04-07] MEDS: PRENATAL VIT,CALC/IRON/FOLIC 1 TABLET 1 TAB PO (10:05)
[2019-04-07] MEDS: DOCUSATE 250 MG CAPSULE PO (10:05)
[2019-04-07 11:08] VITALS: BP 118/73; PULSE 77; RESP 18; TEMP 36.6
== END 2019-04-07 11:55 | disposition home or self-care (01) | DRG 807 ==
PROVIDERS: Admitting Provider Family Medicine; PCP Family Medicine; Visit Provider Family Medicine
DX: O42.12 Full-term premature rupture of membranes, onset of labor more than 24 hours following rupture (principal); Z37.0 Single live birth; Z3A.38 38 weeks gestation of pregnancy; O70.0 First degree perineal laceration during delivery; O69.1XX0 Labor and delivery complicated by cord around neck, with compression, not applicable or unspecified
CPT/HCPCS: 01967; 36415; 59025; 59050; 59400; 84112; 85014; 85018; 85025; 86850; 86900; 86901; G0378; G0379; J2590; S0191

== ENCOUNTER → 2019-06-01 11:21 | Outpatient (CLI) | payer OTHER, SELFPAY ==
[2019-06-01 11:55] LABS: Add Manual Diff / Slide Review NO; Basophils Absolute Auto 0 /uL (0-100); Basophils Percent Auto 0.4 % (0-2); Eosinophils Absolute Auto 100 /uL (0-450); Eosinophils Percent Auto 0.9 % (2-4); Hematocrit 41.2 % (36-46); Hemoglobin 13.8 g/dL (12.0-16.0); Lymphocytes Absolute Auto 2000 /uL (1100-4500); Lymphocytes Percent Auto 35.6 % (25-40); Mean Corpuscular HGB Conc 33.4 % (30-36); Mean Corpuscular Hemoglobin 29.7 PG (26-34); Mean Corpuscular Volume 88.8 fL (80-100); Monocytes Absolute Auto 300 /uL (0-900); Monocytes Percent Auto 5.4 % (3-14); Neutrophils Absolute Auto 3200 /uL (1500-7000); Neutrophils Percent Auto 57.7 % (50-75); Platelet Count 273 X10^3/uL (150-400); Red Blood Cell Count 4.64 X10^6/uL (4.0-5.2); Red Cell Distribution Width 14.5 % (11.6-14.8); White Blood Cell Count 5.6 X10^3/uL (4.5-11.0)
[2019-06-01 12:09] LABS: Alanine Aminotransferase 20 IU/L (<35); Albumin 5.1 g/dL (3.5-5.0); Albumin Globulin Ratio 2.2 (1.0-2.8); Alkaline Phosphatase 81 U/L (38-126); Aspartate Aminotransferase 24 IU/L (14-36); Bilirubin Total 0.7 mg/dL (0.2-1.3); Blood Urea Nitrogen 16 mg/dL (7-17); Calcium 9.9 mg/dL (8.4-10.2); Carbon Dioxide 28 mmol/L (22-32); Chloride 102 mmol/L (98-107); Estimated Glomerular Filt Rate > 60.0 mL/min (>60); Globulin 2.3 g/dL (1.7-4.1); Glucose 86 mg/dL (70-100); HEMOLYSIS < 15 (0-50); Potassium 4.5 mmol/L (3.4-5.1); Sodium 141 mmol/L (137-145); Total Protein 7.4 g/dL (6.3-8.2)
[2019-06-01 12:38] LABS: TSH w/ Reflex to FT4 0.75 uIU/mL (0.47-4.68)
== END ==
PROVIDERS: PCP Family Medicine; Visit Provider Family Medicine
DX: R53.83 Other fatigue (principal)
CPT/HCPCS: 36415; 80053; 84443; 85025

== ENCOUNTER → 2020-03-31 09:09 | Outpatient (CLI) | payer OTHER, SELFPAY ==
--- NOTE | 2020-03-31 09:10 | DI.US.S_ITS ---
PROCEDURE: US OB <= 14 WEEKS FETUS INDICATIONS: Initial US for Dating and Viability please : after 03/29/20 OUTSIDE/PRIOR DATING DATA: Last menstrual period (LMP): 02/01/20 . LMP-based estimated date of delivery (ABHINAV): 11/08/19 . First dating scan (date and location): This study . Estimated date of delivery (ABHINAV) from first dating scan: 11/12/20 . TECHNIQUE: Real-time scanning was performed of the fetus and maternal pelvic organs, with image documentation. Endovaginal scanning was also performed to better visualize the fetus and maternal ovaries. COMPARISON: [facility], OB <= 14 WEEKS FETUS, 09/01/2018, 7:58. FINDINGS: Embryo: [place]-rump length 1.4 cm correlates with a gestational age of 7 weeks 5 days, with heart rate 163 beats per minute. Measurement variability in dating: +/- 4 weeks by LMP, +/- 7 days by mean sac diameter (use before 6 weeks gestation if crown-rump length not able to be measured), +/- 5 days by crown-rump length (up to 8 weeks 6 days gestation), +/- 7 days by crown-rump length (up to 13 weeks 6 days gestation). Maternal organs: Ovaries normal considering gestational status . Limited images through the kidneys demonstrate no hydronephrosis. IMPRESSION: Single living intrauterine gestation, delivery date projected to be centered on 11/12/20. Dictated by: Dean Sheth M.D. on 03/31/2020 at 12:07 Approved by: Dean Sheth M.D. on 03/31/2020 at 12:08
== END ==
PROVIDERS: PCP Family Medicine; Referring Provider Family Medicine; Visit Provider Family Medicine
DX: Z34.81 Encounter for supervision of other normal pregnancy, first trimester (principal); Z3A.01 Less than 8 weeks gestation of pregnancy
CPT/HCPCS: 76801

== ENCOUNTER → 2020-04-12 08:27 | Outpatient (CLI) | payer OTHER, SELFPAY ==
[2020-04-12 09:18] LABS: Add Manual Diff / Slide Review NO; Basophils Absolute Auto 0 /uL (0-100); Basophils Percent Auto 0.3 % (0-2); Eosinophils Absolute Auto 0 /uL (0-450); Eosinophils Percent Auto 0.3 % (2-4); Hematocrit 40.2 % (36-46); Hemoglobin 13.5 g/dL (12.0-16.0); Lymphocytes Absolute Auto 1000 /uL (1100-4500); Lymphocytes Percent Auto 15.1 % (25-40); Mean Corpuscular HGB Conc 33.5 % (30-36); Mean Corpuscular Hemoglobin 31.4 PG (26-34); Mean Corpuscular Volume 93.7 fL (80-100); Monocytes Absolute Auto 400 /uL (0-900); Monocytes Percent Auto 6.3 % (3-14); Neutrophils Absolute Auto 5300 /uL (1500-7000); Platelet Count 214 X10^3/uL (150-400); Red Cell Distribution Width 12.6 % (11.6-14.8); White Blood Cell Count 6.8 X10^3/uL (4.5-11.0)
[2020-04-12 09:23] LABS: Appearance Urine UA CLEAR; Bilirubin Urine UA NEGATIVE (NEGATIVE); Color Urine UA YELLOW; Glucose Urine UA NEGATIVE (Negative); Ketones Urine UA NEGATIVE (NEGATIVE); Leukocyte Esterase Urine UA NEGATIVE (NEGATIVE); Nitrite Urine UA NEGATIVE (Negative); Occult Blood Urine UA NEGATIVE (Negative); Protein Urine UA NEGATIVE (Negative); Specific Gravity Urine UA 1.015 (1.000-1.035); Urobilinogen Urine UA 0.2 E.U./dL (0.2)
[2020-04-12 10:23] LABS: Hepatitis B Surface Antigen NEGATIVE s/c (NEGATIVE); Rubella Antibody IgG 22.3 IU/mL (>15)
[2020-04-12 10:49] LABS: HIV 1 & 2 Ab/Ag 4th Gen Combo NEGATIVE (NEGATIVE); Hep C Virus Ab w/Reflex Quant NEGATIVE s/c (NEGATIVE)
[2020-04-13 08:07] LABS: RPR Screen Non Reactive (Non Reactive)
[2020-04-13 13:27] LABS: Varicella IgG Antibody 509 index (Immune >165)
== END ==
PROVIDERS: PCP Family Medicine; Referring Provider Family Medicine; Visit Provider Family Medicine
DX: Z34.81 Encounter for supervision of other normal pregnancy, first trimester (principal)
CPT/HCPCS: 36415; 80055; 81003; 86787; 86803; 86850; 86900; 86901; 87086; 87389

== ENCOUNTER → 2020-06-09 13:54 | Outpatient (CLI) | payer OTHER, SELFPAY ==
[2020-06-11 20:36] LABS: AFP, Serum 58.4 ng/mL (.); Calc Gestational Age Ultrasound (.); Estriol, Free 1.31 ng/mL (.); Inhibin A, Dimeric 159.97 pg/mL (.); Inhibin A, MoM 0.94 (.); Maternal Ethnicity Caucasian (.); Maternal Weight 140 lbs (.); Number of Fetuses No (.); OSBR Risk 1 IN 4273 (.); Results Report (.); Test Results *Screen Negative* (.); hCG, MoM 1.52 (.); hCG, Serum 46923 mIU/mL (.)
== END ==
PROVIDERS: PCP Family Medicine; Referring Provider Family Medicine; Visit Provider Family Medicine
DX: Z34.90 Encounter for supervision of normal pregnancy, unspecified, unspecified trimester (principal); Z3A.17 17 weeks gestation of pregnancy
CPT/HCPCS: 36415; 82105; 82677; 84702; 86336

== ENCOUNTER → 2020-06-25 14:04 | Outpatient (CLI) | payer OTHER, SELFPAY ==
--- NOTE | 2020-06-25 14:05 | DI.US.S_ITS ---
PROCEDURE: US OB >= 14 WEEKS FETUS INDICATIONS: anatomy screening OUTSIDE/PRIOR DATING DATA: Last menstrual period (LMP): 02/01/2020. LMP-based estimated date of delivery (ABHINAV): 11/08/2019 . First dating scan (date and location): 03/31/2020 . Estimated date of delivery (ABHINAV) from first dating scan: 11/12/2020 . TECHNIQUE: Real-time scanning was performed of the fetus, with image documentation and biometric measurements. Endovaginal scanning: No COMPARISON: [facility], OB >= 14 WEEKS FETUS, 11/30/2018, 9:38. FINDINGS: General: A single living intrauterine gestation is present. Presentation: Transverse. Placenta: Placental position is posterior , without previa. Amniotic fluid index: 13 cm, normal range is 5-24 cm. heart rate: 140 beats per minute. Maternal cervical canal: 6.1 cm long. Normal lower limit is 2.5 cm. biometrics: Biparietal diameter: 19 weeks 6 days Head circumference: 19 weeks 6 days Abdominal circumference: 20 weeks 4 days Femur length: 20 weeks 1 day Estimated gestational age from initial scan: 20 weeks Composite gestational age from present scan: 20 weeks 1 day Estimated weight and percentile: 343 g; 61st percentile Measurement variability for biometric dating: +/- 7 days from 14 weeks to 15 weeks 6 days gestation, +/- 10 days from 16 weeks to 21 weeks 6 days gestation, +/- 2 weeks from 22 weeks to 27 weeks 6 days gestation, +/- 3 weeks for 28 weeks gestation or later. weight reference: 4500 g or EFW >90/95% is considered macrosomia or large for gestational age. EFW <10% is small for gestational age. EFW 5% or less is considered intra-uterine growth restriction. Anatomic survey: Neuro: Ventricles are non-dilated at less than 10 mm. Cisterna magna is normal at 3-11 mm. Cerebellum is normal in size and morphology. Nuchal skin fold: Normal at less than 6 mm between 14-21 weeks gestational age. Face: Nose and lips, facial profile are normal. Spine: No evidence for spina bifida. Heart: 4-chambered heart is present, with normal ventricular outflow tracts. Diaphragm: Diaphragm is intact. Stomach: Left-sided stomach is present. Kidneys: No hydronephrosis. Normal is less than 5 mm in 2nd trimester, less than 7 mm in 3rd trimester. Cord: 3-vessel cord has orthotopic insertion. Bladder: Normal in size. Extremities: All 4 extremities identified. IMPRESSION: 1. Single living IUP redemonstrated and interval growth is normal. 2. Normal anatomic survey. Dictated by: Willie WILDE Interpreted: Yazmin Csota MD on 06/25/2020 at 16:25 Approved by: Yazmin Costa MD, PhD on 06/25/2020 at 16:54
== END ==
PROVIDERS: PCP Family Medicine; Referring Provider Family Medicine; Visit Provider Family Medicine
DX: Z34.92 Encounter for supervision of normal pregnancy, unspecified, second trimester (principal); Z3A.19 19 weeks gestation of pregnancy
CPT/HCPCS: 76811

== ENCOUNTER → 2020-08-15 10:46 | Outpatient (CLI) | payer OTHER, SELFPAY ==
[2020-08-15 13:30] LABS: Hematocrit 35.8 % (36-46); Hemoglobin 12.3 g/dL (12.0-16.0)
[2020-08-15 13:33] LABS: GTT (PREG) 1 Hour PP 50gm Dose 104 mg/dL (76-139)
== END ==
PROVIDERS: PCP Family Medicine; Referring Provider Family Medicine; Visit Provider Family Medicine
DX: Z34.90 Encounter for supervision of normal pregnancy, unspecified, unspecified trimester (principal); Z3A.26 26 weeks gestation of pregnancy
CPT/HCPCS: 36415; 82950; 85014; 85018